=== PATIENT | female | born 1975 | race Hispanic/Latino ===

== ENCOUNTER 2020-08-31 21:39 | Emergency (ER) | payer SELFPAY ==
[~2020-08-31] VITALS: Ht 170.2 cm; Wt 73.9 kg
[2020-08-31 22:25] VITALS: BP 127/91
== END 2020-08-31 22:25 | disposition home or self-care (01) ==
LOC: FSED 22:00
DX: M94.0 Chondrocostal junction syndrome [Tietze] (principal); Z87.891 Personal history of nicotine dependence
CPT/HCPCS: 99282